=== PATIENT | male | born 1955 | race Caucasian/White ===

== ENCOUNTER → 2021-11-18 | Outpatient (CLI) | payer OTHER | LOC: KOH-I 13:14 | DX: R10.2 Pelvic and perineal pain (principal); M54.9 Dorsalgia, unspecified; M54.17 Radiculopathy, lumbosacral region; M54.50 Low back pain, unspecified; M47.814 Spondylosis without myelopathy or radiculopathy, thoracic region | CPT/HCPCS: 72070; 74018 ==